=== PATIENT | female | born 2000 | race Caucasian/White ===

== ENCOUNTER 2018-06-18 03:27 | Emergency (ER) | payer MEDICAID ==
[~2018-06-18] VITALS: Ht 165.1 cm; Wt 86.8 kg
[2018-06-18] MEDS ORDERED: SODIUM CHLORIDE 0.9% 1,000 ML IV ONE (04:30)
[2018-06-18] MEDS ORDERED: KETOROLAC 30MG/ML VIAL IV STA (04:30)
[2018-06-18] MEDS ORDERED: ONDANSETRON HCL 4MG/2ML INJ IV STA (04:30)
[2018-06-18] MEDS ORDERED: FAMOTIDINE 20MG/2ML VIAL IV STA (04:30)
[2018-06-18 04:54] LABS: BASOPHILS % 0.3 % (0.0-2.0); EOSINOPHILS % 4.4 % (0.0-5.0); HEMATOCRIT. 42.9 % (36.0-48.0); HEMOGLOBIN. 14.5 g/dL (12.0-16.0); LYMPHOCYTES % 26.3 % (20.0-50.0); MEAN CORPUSCULAR HEMOGLOBIN 28.3 pg (28.0-32.0); MEAN CORPUSCULAR VOLUME 83.5 fL (81.0-99.0); MONOCYTES % 5.4 % (2.0-8.0); NEUTROPHILS % 63.6 % (40.0-76.0); PLATELET 331 x1000/uL (130-400); RED BLOOD CELL COUNT 5.14 mill/uL (4.2-5.4)
[2018-06-18 05:00] LABS: CHLORIDE 109 mEq/L (98-107)
[2018-06-18 05:03] LABS: ETHANOL BLOOD < 10 mg/dL
[2018-06-18 05:22] LABS: CLARITY URINE CLOUDY (CLEAR); COLOR URINE YELLOW (YELLOW); KETONES URINE NEGATIVE (NEGATIVE); LEUKOCYTE ESTERASE URINE 1+ (NEGATIVE); NITRITE URINE NEGATIVE (NEGATIVE); OCCULT BLOOD URINE NEGATIVE (NEGATIVE); PROTEIN URINE NEGATIVE (NEGATIVE); SPECIFIC GRAVITY URINE 1.018 (1.005-1.030); UROBILINOGEN URINE 0.2 E.U./dL (0.2-1.0)
[2018-06-18] MEDS ORDERED: VISCOUS LIDOCAINE 2% 15 ML UDC PO ONE (06:45)
[2018-06-18] MEDS ORDERED: FAMOTIDINE 20MG/2ML VIAL IV ONE (06:45)
[2018-06-18] MEDS ORDERED: MAGNESIUM/ALUMINUM HYDROXIDE/SIMETHICONE 30ML UDC PO ONE (06:45)
[2018-06-18 08:31] VITALS: BP 105/54
== END 2018-06-18 08:48 | disposition home or self-care (01) ==
LOC: ER 03:27
DX: K21.9 Gastro-esophageal reflux disease without esophagitis (principal)
CPT/HCPCS: 36415; 80053; 80320; 81003; 81025; 83690; 85025; 96361; 96374; 96375; 99283; J1885; J2405; J3490; J7030; Z7610; G0480

== ENCOUNTER 2019-02-26 04:30 | Emergency (ER) | payer MEDICAID ==
[~2019-02-26] VITALS: Ht 160 cm; Wt 90.0 kg
[2019-02-26] MEDS ORDERED: FAMOTIDINE 20MG/2ML VIAL IV STA (06:31)
[2019-02-26] MEDS ORDERED: KETOROLAC 30MG/ML VIAL IV STA (06:31)
[2019-02-26] MEDS ORDERED: ONDANSETRON HCL 4MG/2ML INJ IV STA (06:31)
[2019-02-26] MEDS ORDERED: VISCOUS LIDOCAINE 2% 15 ML UDC PO STA (06:31)
[2019-02-26] MEDS ORDERED: MAGNESIUM/ALUMINUM HYDROXIDE/SIMETHICONE 30ML UDC PO STA (06:31)
[2019-02-26] MEDS ORDERED: SODIUM CHLORIDE 0.9% 1,000 ML IV ONE (06:31)
[2019-02-26] MEDS ORDERED: DICYCLOMINE 10 MG/5 ML ORAL SYR PO STA (06:31)
[2019-02-26 07:40] LABS: CLARITY URINE CLEAR (CLEAR); COLOR URINE YELLOW (YELLOW); KETONES URINE TRACE (NEGATIVE); LEUKOCYTE ESTERASE URINE NEGATIVE (NEGATIVE); NITRITE URINE NEGATIVE (NEGATIVE); OCCULT BLOOD URINE NEGATIVE (NEGATIVE); PROTEIN URINE NEGATIVE (NEGATIVE); SPECIFIC GRAVITY URINE 1.023 (1.005-1.030); UROBILINOGEN URINE 0.2 E.U./dL (0.2-1.0)
[2019-02-26 07:40] LABS: BASOPHILS % 0.3 % (0.0-2.0); EOSINOPHILS % 0.8 % (0.0-5.0); HEMATOCRIT. 42.2 % (36.0-48.0); HEMOGLOBIN. 14.3 g/dL (12.0-16.0); LYMPHOCYTES % 9.7 % (20.0-50.0); MEAN CORPUSCULAR HEMOGLOBIN 28.3 pg (28.0-32.0); MEAN CORPUSCULAR VOLUME 83.3 fL (81.0-99.0); MONOCYTES % 3.2 % (2.0-8.0); PLATELET 353 x1000/uL (130-400); RED BLOOD CELL COUNT 5.06 mill/uL (4.2-5.4); RED CELL DISTRIBUTION WIDTH 13.2 % (11.6-14.6)
[2019-02-26 07:44] LABS: CHLORIDE 109 mEq/L (98-107)
[2019-02-26 07:55] LABS: HCG SCREEN NEGATIVE
[2019-02-26 09:59] VITALS: BP 113/55
== END 2019-02-26 10:04 | disposition home or self-care (01) ==
LOC: ER 04:30
DX: R10.13 Epigastric pain (principal); F17.210 Nicotine dependence, cigarettes, uncomplicated; Z71.6 Tobacco abuse counseling
CPT/HCPCS: 36415; 80053; 81003; 83690; 84703; 85025; 96361; 96374; 96375; 99284; 99406; J1885; J2405; J3490; J7030